=== PATIENT | female | born 1995 | race Caucasian/White ===

== ENCOUNTER 2019-03-30 17:16 | Emergency (ER) | payer OTHER ==
[~2019-03-30] VITALS: Ht 175.3 cm; Wt 86.2 kg
[2019-03-30 18:30] VITALS: BP 120/82
[2019-03-30] MEDS ORDERED: IBUP-1060 PO (18:51)
[2019-03-30] MEDS ORDERED: CYCL10TA2 PO (18:51)
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
[2019-03-30] MEDS ORDERED: IBUPROFEN 400 MG TABLET. PO ONE (19:00)
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
== END 2019-03-30 19:15 | disposition home or self-care (01) ==
LOC: ER 17:16
DX: S50.812A Abrasion of left forearm, initial encounter (principal); S80.212A Abrasion, left knee, initial encounter; S00.81XA Abrasion of other part of head, initial encounter; V49.9XXA Car occupant (driver) (passenger) injured in unspecified traffic accident, initial encounter; Y92.488 Other paved roadways as the place of occurrence of the external cause; Y93.89 Activity, other specified; Y99.8 Other external cause status
CPT/HCPCS: 73090; 99284